=== PATIENT | female | born 1960 | race Caucasian/White ===

== ENCOUNTER 2022-11-04 10:00 | Emergency (ER) | payer OTHER, SELFPAY ==
--- NOTE | 2022-11-04 10:07 | ED.URI ---
HPI - URI/Sore Throat General Chief Complaint: Upper Respiratory Infection Stated Complaint: cold flu Time Seen by Provider: 11/04/22 11:08 Source: patient and RN notes reviewed Mode of arrival: ambulatory Limitations: no limitations History of Present Illness HPI Narrative: 62-year-old female presents with concern for nasal congestion, rhinorrhea, ear pain for several days. Reports she has been using her antihistamines and oral rinses without relief. She denies fever, aches, chills, sweats. Reports she has not another house in 2 weeks. She denies known sick contacts. She denies shortness of breath. MD elicited complaint: cough and nasal congestion Related Data Allergies Allergy/AdvReac Type Severity Reaction Status Date / Time Penicillins Allergy Rash Verified 11/04/22 10:29 Review of Systems Review of Systems: CONSTITUTIONAL: Denies malaise, chills, sweats, or fever. EYES: Denies visual changes, redness, or discharge. ENT: Reports rhinorrhea, congestion, otalgia. Denies sinus pain and sore throat. CARDIOVASCULAR: Denies chest pain, palpitations, or edema. RESPIRATORY: Reports cough. Denies dyspnea. GASTROINTESTINAL: Denies abdominal pain, nausea, vomiting, diarrhea SKIN: Denies rash or itching. MUSCULOSKELETAL: Denies myalgia. NEUROLOGIC: Denies headache. All systems reviewed & are unremarkable except as noted in HPI and below PMFSH Comments At time of signature, agree with nursing past medical, surgical, social and family history. There is no relevant family history pertinent to the presenting complaint Exam Narrative: GENERAL: Well-appearing, well-nourished, and in no acute distress. HEAD: Normocephalic EYES: PERRLA, conjunctivae clear ENT: Nares clear, turbinates edematous and erythematous, clear discharge. Mucous membranes moist. TM pearly jean with dull light reflex bilaterally, worse on the left mild effusion; no tragal tenderness. Oropharynx not erythematous without lesions. Tonsils not enlarged and without exudate, no drooling, no hoarseness, no trismus, uvula midline. NECK: Supple. No lymphadenopathy CHEST: Clear to auscultation, breath sounds equal. No wheezing, rhonchi, rales, or stridor. No respiratory distress, speaks in full sentences. HEART: Regular rate and rhythm. No murmur heard. SKIN: Warm, dry, no rash. NEURO: Alert and oriented x3. PSYCH: Normal mood and affect Course Course Emergency Course: Patient is aware of diagnosis, understands and agrees to treatment plan. Anticipatory guidance given. Patient agrees to follow-up as directed and is aware of reasons to seek care at the emergency department. Portions of this record may have been created with voice recognition software Level of Care: Express Care Visit Vital Signs Vital signs: Vital Signs Temperature 98.4 F 11/04/22 10:15 Pulse Rate 102 H 11/04/22 10:15 Respiratory Rate 18 11/04/22 10:15 Blood Pressure 156/86 H 11/04/22 10:15 Pulse Oximetry 98 11/04/22 10:15 Oxygen Delivery Room Air 11/04/22 10:15 Temperature 98.4 F 11/04/22 10:15 Pulse Rate 102 H 11/04/22 10:15 Respiratory Rate 18 11/04/22 10:15 Blood Pressure 156/86 H 11/04/22 10:15 Pulse Oximetry 98 11/04/22 10:15 Oxygen Delivery Room Air 11/04/22 10:15 Reviewed. MDM - URI/Sore Throat MDM Narrative Medical decision making narrative: Differential diagnosis considered: Echavarria virus, strep pharyngitis, allergic rhinitis, upper respiratory tract infection, sinusitis, rhinosinusitis, nasopharyngitis. viral pharyngitis, otitis media, otitis externa, pneumonia, bronchitis, viral cough syndrome, viral syndrome, and influenza. Exam findings show no acute concerns or changes; patient is non-toxic appearing and is in no distress. Patient is appropriate for outpatient treatment and follow-up. Lab Data Attestation: I reviewed the patient's lab results. Critical Care Time Critical Care Time Critical Care Time: No Discharge Plan Discharge Clin
[2022-11-04 10:15] VITALS: BP 156/86; PULSE 102; RESP 18; TEMP 36.9; O2SAT 98
== END 2022-11-04 11:22 | disposition home or self-care (01) ==
PROVIDERS: Emergency Provider Nurse Practitioner; PCP Family Medicine
DX: J06.9 Acute upper respiratory infection, unspecified (principal); H73.892 Other specified disorders of tympanic membrane, left ear
CPT/HCPCS: 99213; G0463